=== PATIENT | female | born 1965 | race American Indian/Alaskan Native ===

== ENCOUNTER 2016-10-14 09:23 | Emergency (ER) | payer MEDICAID ==
[2016-10-14] MEDS ORDERED: MOTRIN PO ONE (09:59)
[2016-10-14] MEDS ORDERED: BICILLIN L-A IM ONE (09:59)
--- NOTE | 2016-10-14 09:59 | Emergency Department Report ---
HPI - General Chief Complaint: Sore Throat Time Seen by Provider: 10/14/16 09:59 - HPI HPI: Patient here complaining of sore throat 3 days. She said her throat perez and it hurts to swallow. She reports chills but says she didn't take her temperature. She says she took some [place] cold without any relief. She took it before coming to the emergency room. Denies any drooling. Denies any difficulty swallowing. Denies any wheezing or stridor. Denies any cough. She reports that she has a slight headache. Blood pressure 150/103 and she says she does not have a history of high blood pressure. She said her. Pain is 10 out of 10. Denies any nausea vomiting. ED Past Medical Hx - Past Medical History Previous Medical History?: No - Surgical History Past Surgical History?: No - Family History Family history: no significant - Social History Smoking Status: Never Smoker Substance Use Type: None - Medications Home Medications: Home Medications Medication Instructions Recorded Confirmed Last Taken Type Ibuprofen [Motrin] 600 mg PO Q8H PRN #20 tablet 10/14/16 Unknown Rx ED Review of Systems ROS: Stated complaint: SORE THROAT Other details as noted in HPI Comment: All other systems reviewed and negative Constitutional: chills. denies: fever Eyes: denies: eye discharge ENT: throat pain. denies: ear pain, congestion Respiratory: no symptoms reported Cardiovascular: denies: chest pain, palpitations, edema, syncope Gastrointestinal: denies: nausea, vomiting Musculoskeletal: denies: back pain, arthralgia Skin: denies: rash Neurological: headache. denies: weakness, numbness, paresthesias, confusion, abnormal gait, vertigo Physical Exam - Physical Exam Vital Signs: Vital Signs 10/14/16 09:39 Temperature 98.8 F Pulse Rate 99 H Respiratory 18 Rate Blood Pressure 150/103 O2 Sat by Pulse 97 Oximetry Vital Signs 10/14/16 10/14/16 09:39 10:36 Temperature 98.8 F Pulse Rate 99 H Respiratory 18 Rate Blood Pressure 150/103 Blood Pressure 145/98 [Right] O2 Sat by Pulse 97 Oximetry General: This is a 51-year-old female well-nourished well-developed in no acute distress. Physical Exam: Head: Normocephalic atraumatic Mouth: Moist, positive pharyngeal exudate and erythema. Bilateral tensor swelling at grade 1. Uvula is midline and oral airway is patent. No gingival enlargement or dental tenderness. No facial swelling. No peritonsillar abscesses. Neck: Supple, no C-spine tenderness, no tracheal deviation. Nontender to palpate. Positive anterior cervical adenopathy Ears: Bilateral TMs pearly-dempsey .bilateral EAC without any redness swelling or drainage Eyes: Bilateral pupils equal and reactive to light, bilateral EOM intact. Bilateral sclera and conjunctiva without injection. Normal accommodation Nose: Mucosa moist, normal mucosa .maxillary and frontal sinus non-tender to palpate. Lungs: Clear to auscultate bilaterally no rhonchi wheezes or rales. Normal work of breathing extremity; No CCE. +2 pulses. No neurovascular compromise Cardiovascular: S1-S2, regular rate rhythm. No murmurs. Skin: clean Dry and intact no rash no lesions Psych: Normal mood and behavior ED Course Vital Signs 10/14/16 09:39 Temperature 98.8 F Pulse Rate 99 H Respiratory 18 Rate Blood Pressure 150/103 O2 Sat by Pulse 97 Oximetry Vital Signs 10/14/16 10/14/16 09:39 10:36 Temperature 98.8 F Pulse Rate 99 H Respiratory 18 Rate Blood Pressure 150/103 Blood Pressure 145/98 [Right] O2 Sat by Pulse 97 Oximetry - Reevaluation(s) Reevaluation #1: 10/14/16 11:03 Patient given Motrin 800 mg in emergency room and Bicillin 1.2 million units injection to treat strep throat. ED Medical Decision Making - Medical Decision Making ED course: See treated for exudative pharyngitis in emergency room patient was given Bicillin 1.2 million units injection. She was given Motrin 800 mg by mouth for pain. Relieved and she did not have any adverse reaction to Bicillin. Patient treated for strep based on an enlarged tonsils, pharyngeal erythema with exudate, chills, positive cervical adenopathy and headache. I described diagnosis and treatment plan the patient and she was understanding. Patient discharged home with prescription for Motrin and to follow up with her primary care physician in 2-3 days. Critical care attestation.: If time is entered above; I have spent that time in minutes in the direct care of this critically ill patient, excluding procedure time. ED Disposition Clinical Impression: Exudative pharyngitis Disposition: DISCHARGED TO HOME OR SELFCARE Is pt being admited?: No Does the pt Need Aspirin: No Condition: Stable Instructions: Pharyngitis (ED), Strep Throat (ED) Additional Instructions: Gargle with warm saltwater 3 times a day You were Given antibiotic injection emergency room along with active antibiotic and a work with her 10 days. Prescriptions: Ibuprofen [Motrin] 600 mg PO Q8H PRN #20 tablet PRN Reason: Pain Referrals: PRIMARY CARE, [Primary Care Provider] - 2-3 Days Forms: Work/School Release Form(ED)
[2016-10-14 10:36] VITALS: BP 145/98
== END 2016-10-14 11:18 | disposition home or self-care (01) ==
LOC: ED 09:23
DX: J02.9 Acute pharyngitis, unspecified (principal)
CPT/HCPCS: 96372; 99282; J0561

== ENCOUNTER 2016-10-18 03:08 | Emergency (ER) | payer MEDICAID ==
[2016-10-18 03:48] VITALS: BP 147/99
== END 2016-10-18 06:53 | disposition left against medical advice (07) ==
LOC: ED 03:08
DX: H92.03 Otalgia, bilateral (principal); Z53.21 Procedure and treatment not carried out due to patient leaving prior to being seen by health care provider

== ENCOUNTER 2017-02-13 07:24 | Emergency (ER) | payer MEDICAID ==
[2017-02-13] MEDS ORDERED: MOTRIN PO ONE (07:44)
--- NOTE | 2017-02-13 07:44 | Emergency Department Report ---
ED Extremity Problem HPI - General Chief complaint: Extremity Injury, Lower Stated complaint: LT FOOT PAIN Time Seen by Provider: 02/13/17 07:35 Source: patient Mode of arrival: Ambulatory Limitations: No Limitations - History of Present Illness MD Complaint: extremity pain -: Gradual, week(s) (3) Location: left History of Same: No -: No myalgia, No arthralgia, No fever, No associated dyspnea, No associated chest pain Radiation: none Severity scale (0 -10): 4 (dont think she can work at [employer] today) Quality: aching Consistency: intermittent Improves with: rest Worsens with: other (working) Associated Symptoms: denies other symptoms, other (no fall or trauma; reports wearing good shoes at work.). denies: chest pain, shortness of breath, fever, myalgias, arthralgias, rash - Related Data Previous Rx's Medication Instructions Recorded Last Taken Type Ibuprofen [Motrin] 600 mg PO Q8H PRN #20 tablet 10/14/16 Unknown Rx Carbamide Peroxide [Earwax 15 ml OT BID #1 bottle 10/20/16 Unknown Rx Treatment] Neomy/Polymyx B/Hc (Otic) Soln 4 drops OTIC TID #1 bottle 10/20/16 Unknown Rx [Cortisporin (Otic) Soln] Naproxen Sodium [Aleve TAB] 220 mg PO Q8H PRN #12 tablet 02/13/17 Unknown Rx Allergies Allergy/AdvReac Type Severity Reaction Status Date / Time No Known Allergies Allergy Unverified 10/14/16 09:42 ED Review of Systems ROS: Stated complaint: LT FOOT PAIN Other details as noted in HPI Comment: All other systems reviewed and negative Constitutional: no symptoms reported, see HPI Eyes: as per HPI ENT: as per HPI Respiratory: no symptoms reported Cardiovascular: as per HPI Endocrine: no symptoms reported, see HPI Gastrointestinal: as per HPI, abdominal pain Genitourinary: as per HPI, urgency Musculoskeletal: as per HPI Skin: as per HPI Neurological: as per HPI Psychiatric: as per HPI Hematological/Lymphatic: as per HPI ED Past Medical Hx - Past Medical History Previous Medical History?: No - Surgical History Past Surgical History?: No - Family History Family history: no significant - Social History Smoking Status: Never Smoker Substance Use Type: Non Opiate Pain - Medications Home Medications: Home Medications Medication Instructions Recorded Confirmed Last Taken Type Ibuprofen [Motrin] 600 mg PO Q8H PRN #20 tablet 10/14/16 Unknown Rx Carbamide Peroxide [Earwax 15 ml OT BID #1 bottle 10/20/16 Unknown Rx Treatment] Neomy/Polymyx B/Hc (Otic) Soln 4 drops OTIC TID #1 bottle 10/20/16 Unknown Rx [Cortisporin (Otic) Soln] Naproxen Sodium [Aleve TAB] 220 mg PO Q8H PRN #12 tablet 02/13/17 Unknown Rx ED Physical Exam - General Limitations: No Limitations General appearance: alert, in no apparent distress - Head Head exam: Present: atraumatic - Eye Eye exam: Present: normal appearance - ENT ENT exam: Present: normal exam - Neck Neck exam: Present: normal inspection - Respiratory Respiratory exam: Present: normal lung sounds bilaterally - Cardiovascular Cardiovascular Exam: Present: regular rate - GI/Abdominal GI/Abdominal exam: Present: soft - Rectal Rectal exam: Present: deferred - Extremities Exam Extremities exam: Present: normal inspection, full ROM, normal capillary refill. Absent: pedal edema, calf tenderness - Expanded Lower Extremity Exam Left Hip exam: Present: normal inspection, full ROM. Absent: swelling, abrasion, laceration, ecchymosis, deformity, crepidus, dislocation, erythema, external rotation, internal rotation, shortening, pelvic stability Upper Leg exam: Present: normal inspection, full ROM Knee exam: Present: normal inspection, full ROM Lower Leg exam: Present: normal inspection, full ROM Ankle exam: Present: normal inspection, full ROM. Absent: tenderness, swelling , abrasion, laceration, ecchymosis, deformity Foot/Toe exam: Present: normal inspection, full ROM, swelling. Absent: tenderness, abrasion, laceration, ecchymosis, deformity, crepidus, dislocation, erythema, amputation, puncture wound, foreign body, calcaneal tenderness, tenderness at base of 5th metatarsal, nail avulsion, subungual hematoma Neuro vascular tendon exam: Present: no vascular compromise. Absent: pulse deficit, abnormal cap refill, motor deficit, sensory deficit, tendon deficit, extremity cold to touch, pallor, abnormal 2-point discrimination, decreased fine /light touch, foot drop, peroneal nerve deficit, significant pain with passive ROM of distal joint Gait: Positive: observed and normal 1 - area of co of pain. w mild swelling at proximal end of this box - Back Exam Back exam: Present: normal inspection - Neurological Exam Neurological exam: Present: alert, altered, oriented X3 - Psychiatric Psychiatric exam: Present: normal affect, normal mood - Skin Skin exam: Present: warm, dry, intact, normal color. Absent: rash ED Course Vital Signs 02/13/17 07:28 Temperature 98.2 F Pulse Rate 79 Respiratory 18 Rate Blood Pressure 141/98 O2 Sat by Pulse 98 Oximetry - Reevaluation(s) Reevaluation #1: 02/13/17 08:08 xray motrin for pain Reevaluation #2: 02/13/17 08:31 xray noted. pt in nad. n/v intact. full rom ED Medical Decision Making - Radiology Data Radiology results: image reviewed - Medical Decision Making nad full rom no s/s infection no trauma good pulses nv intact dc home w poc - Differential Diagnosis ro stress fx in post menop. female given no trauma Critical care attestation.: If time is entered above; I have spent that time in minutes in the direct care of this critically ill patient, excluding procedure time. ED Disposition Clinical Impression: Foot pain, left, Arthritis Disposition: DC-01 TO HOME OR SELFCARE Is pt being admited?: No Does the pt Need Aspirin: No Condition: Stable Instructions: Arthralgia (ED) Additional Instructions: alternate ice and heat for pain ibruprofen, taken with food will help with discomfort. wear shoes with support to work follow up with ortho MD in 3-5 days if persists radiology will call you if they see anything different on review of your xray. your blood pressure was a little elevated today. 1 high blood pressure is not of concern but please monitor this and follow up with your optometric coordinator Drink plenty of water low salt diet- as in fast food also, treating the pain your foot is causing will help with decreasing bp. Prescriptions: Naproxen Sodium [Aleve TAB] 220 mg PO Q8H PRN #12 tablet PRN Reason: Pain Referrals: NEFTALI SALGUERO MD [Staff Physician] - 3-5 Days MARSHALL VILLAFANA MD, PHD [Staff Physician] - 3-5 Days Time of Disposition: 08:33
[2017-02-13 08:43] VITALS: BP 149/93
--- NOTE | 2017-02-13 09:07 | XRay Report ---
LEFT FOOT: History: Foot pain. The bony architecture is intact. Bony alignment is normal. No soft tissue abnormalities are seen. The joint spaces appear preserved. IMPRESSION: Normal left foot.
== END 2017-02-13 08:44 | disposition home or self-care (01) ==
LOC: ED 07:24
DX: M19.072 Primary osteoarthritis, left ankle and foot (principal)
CPT/HCPCS: 99283